=== PATIENT | female | born 1970 | race Native Hawaiian/Other Pacific Islander ===

== ENCOUNTER 2016-06-09 13:25 | Emergency (ER) | payer OTHER ==
[2016-06-09 13:54] VITALS: RESP 18
--- NOTE | 2016-06-09 14:41 | ED ---
ENT HPI - General Chief complaint: Dental/Oral Stated complaint: Oral Pain Time Seen by Provider: 06/09/16 14:33 Source: patient Mode of arrival: ambulatory Limitations: no limitations - History of Present Illness Initial comments: Patient is a 45-year-old female with history of facial cancer presenting with dental pain. Patient states that her teeth spontaneously break. Patient admits to recurrent dental issues for which she is unable to follow up with a dentist. She has an appointment with [facility] for a dentist. Patient hasn't tried anything for the pain. Patient states she was last put on pain pills and penicillin. She denies fever, chills, chest pain, nausea, vomiting, diarrhea. Patient denies trouble swallowing. - Related Data Home Medications Medication Instructions Recorded Confirmed Levothyroxine Sodium [Synthroid] 112 mcg PO DAILY 07/28/15 06/09/16 Previous Rx's Medication Instructions Recorded HYDROcodone/APAP 5-325MG [[place] 5] 1 each PO Q6HR PRN #6 tab 06/09/16 Penicillin V Potassium [Pen Vee K] 500 mg PO QID #40 tab 06/09/16 Allergies Allergy/AdvReac Type Severity Reaction Status Date / Time No Known Allergies Allergy Verified 06/09/16 14:42 Review of Systems ROS Statement: Those systems with pertinent positive or pertinent negative responses have been documented in the HPI. Constitutional: No fever and no chills. HENT: + Dental pain. No congestion, no rhinorrhea and no sore throat. Eyes: No discharge and no redness. Respiratory: No cough and no shortness of breath. Cardiovascular: No chest pain and no palpitations. Gastrointestinal: No nausea, no vomiting, no abdominal pain and no diarrhea. Genitourinary: No dysuria and no hematuria. Musculoskeletal: No back pain and no arthralgias. Skin: No pallor and no rash. Neurological: No dizziness and No headaches. ROS Other: All systems not noted in ROS Statement are negative. 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 Past Anesthesia/Blood Transfusion Reactions: No Reported Reaction Past Psychological History: No Psychological Hx Reported Smoking Status: Former smoker Past Alcohol Use History: None Reported Past Drug Use History: None Reported - Past Family History Father Family Medical History: Cancer Additional Family Medical History / Comment(s): of stomach and lung cancer Mother Family Medical History: Cancer Additional Family Medical History / Comment(s): of pancreatic cancer General Exam - General Exam Comments Initial Comments: Constitutional: Patient doesn't appear in any distress. Patient with chronic face swelling and bandage over nose from history of cancer. Mouth: Poor dentition throughout without any obvious abscess of the upper or lower jaw. Patient with tenderness throughout majority of teeth. Eyes: Conjunctivae and EOM are normal. Right eye exhibits no discharge. Left eye exhibits no discharge. No scleral icterus. Neck: Normal range of motion. Neck supple. Cardiovascular: Normal rate and regular rhythm. No murmur heard. Pulmonary/Chest: Effort normal and breath sounds normal. No respiratory distress. No wheezes. Abdominal: Soft. No distension. There is no tenderness. There is no rebound and no guarding. Musculoskeletal: Normal range of motion. No edema or tenderness. Neurological: Patient alert and oriented to person, place, and time. Skin: Skin is warm and dry. Not diaphoretic. Nursing notes and vitals reviewed. Limitations: no limitations Course Vital Signs 06/09/16 06/09/16 13:51 15:09 Temperature 97.0 F L 97.8 F Pulse Rate 93 80 Respiratory 18 18 Rate Blood Pressure 130/84 162/98 O2 Sat by Pulse 100 98 Oximetry - Reevaluation(s) Reevaluation #1: Given patient's global teeth pain I did not recommend doing a dental block. She is agreeable to this and getting pain pills as well as penicillin VK. Medical Decision Making - Medical Decision Making Patient is a 45-year-old female presenting with recurrent dental pain. She has appointment at [facility] and understands the need to follow-up. Patient was resting in bed. Course of stay stable for outpatient management. Tolerable pain with home pain plan. Discussed physical exam with patient. Questions answered and patient is agreeable to outpatient management with PCP and dentist. Disposition Clinical Impression: Pain, dental Disposition: HOME SELF-CARE Condition: Good Instructions: Toothache (ED) Prescriptions: HYDROcodone/APAP 5-325MG [[place] 5] 1 each PO Q6HR PRN #6 tab PRN Reason: Severe Pain Penicillin V Potassium [Pen Vee K] 500 mg PO QID #40 tab Referrals: Efren Zamudio MD [Primary Care Provider] - 1-2 days
[2016-06-09 15:09] VITALS: BP 162/98; PULSE 80; TEMP 97.8
== END 2016-06-09 15:09 | disposition home or self-care (01) ==
LOC: EC 13:25
DX: K08.89 Other specified disorders of teeth and supporting structures (principal); Z85.72 Personal history of non-Hodgkin lymphomas; E07.9 Disorder of thyroid, unspecified; Z79.899 Other long term (current) drug therapy; Z87.891 Personal history of nicotine dependence
CPT/HCPCS: 99282

== ENCOUNTER 2017-01-27 13:16 | Emergency (ER) | payer OTHER ==
[2017-01-27 13:34] VITALS: BP 139/87; PULSE 95; RESP 18; TEMP 97.7
[2017-01-27] MEDS ORDERED: KETOROLAC 30 MG/ML 1 ML VIAL IM STA (13:36)
[2017-01-27] MEDS ORDERED: HYDROcodone/APAP 5-325MG 1 EACH TAB PO STA (13:36)
--- NOTE | 2017-01-27 13:38 | ED ---
ENT HPI - General Chief complaint: Dental/Oral Stated complaint: Tooth Pain Time Seen by Provider: 01/27/17 13:27 Source: patient Mode of arrival: ambulatory Limitations: no limitations - History of Present Illness Initial comments: 46-year-old female patient presents to emergency department today with complaints of right lower dental pain. Patient states that this area started to bother her yesterday. States she does have a broken tooth in the area. She states that she has bad teeth since receiving 30 rounds of chemo in 2011. She states that she is supposed to have her teeth extracted at [facility] however they have not been able to follow-up to do this. She states that she is unable to sleep due to the pain. She denies any facial swelling, difficulty swallowing, or difficulty opening her mouth. She states she did take an Ultram this morning which did help her pain somewhat. Patient denies any recent fever, chills, shortness breath, chest pain, abdominal pain, nausea, vomiting, diarrhea, constipation, back pain, numbness, tingling, headache, visual changes, hematuria, dysuria, urinary frequency, urinary urgency, or any other complaints. - Related Data Home Medications Medication Instructions Recorded Confirmed Levothyroxine Sodium [Synthroid] 112 mcg PO DAILY 07/28/15 06/09/16 Previous Rx's Medication Instructions Recorded HYDROcodone/APAP 5-325MG [[place] 5] 1 each PO Q6HR PRN #6 tab 06/09/16 Penicillin V Potassium [Pen Vee K] 500 mg PO QID #40 tab 06/09/16 Acetaminophen-Codeine 300-30mg 1 tab PO Q6H PRN #15 tablet 01/27/17 [Tylenol #3] Penicillin V Potassium [Pen Vee K] 500 mg PO QID #40 tab 01/27/17 Allergies Allergy/AdvReac Type Severity Reaction Status Date / Time No Known Allergies Allergy Verified 01/27/17 13:29 Review of Systems ROS Statement: Those systems with pertinent positive or pertinent negative responses have been documented in the HPI. ROS Other: All systems not noted in ROS Statement are negative. 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 Past Anesthesia/Blood Transfusion Reactions: No Reported Reaction Past Psychological History: No Psychological Hx Reported Smoking Status: Current every day smoker Past Alcohol Use History: None Reported Past Drug Use History: None Reported - Past Family History Father Family Medical History: Cancer Additional Family Medical History / Comment(s): of stomach and lung cancer Mother Family Medical History: Cancer Additional Family Medical History / Comment(s): of pancreatic cancer General Exam Limitations: no limitations General appearance: alert, in distress, other (This is a well-developed, well- nourished adult female patient in mild distress related to pain. Vital signs upon presentation her temperature 97.7F, pulse 75, respirations 18, blood pressure 139/87, pulse ox 95% on room air.) Eye exam: Present: normal appearance, PERRL, EOMI. Absent: scleral icterus, conjunctival injection, periorbital swelling ENT exam: Present: normal exam, normal oropharynx, mucous membranes moist, TM's normal bilaterally, other (Patient does have a fractured tooth #32. There is surrounding gingival erythema and swelling with no evidence of drainable abscess.) Neck exam: Present: normal inspection. Absent: tenderness, meningismus, lymphadenopathy Respiratory exam: Present: normal lung sounds bilaterally. Absent: respiratory distress, wheezes, rales, rhonchi, stridor Cardiovascular Exam: Present: regular rate, normal rhythm, normal heart sounds. Absent: systolic murmur, diastolic murmur, rubs, gallop, clicks Neurological exam: Present: alert, oriented X3, CN II-XII intact Psychiatric exam: Present: normal affect, normal mood Skin exam: Present: warm, dry, intact, normal color. Absent: rash Course Vital Signs 01/27/17 13:20 Temperature 97.7 F Pulse Rate 95 Respiratory 18 Rate Blood Pressure 139/87 O2 Sat by Pulse 95 Oximetry Medical Decision Making - Medical Decision Making 46-year-old female patient presented for evaluation of right lower dental pain 2 days. Physical exam did reveal a fractured tooth #32, with gingival erythema and swelling. As patient does have signs of infection we will not do a dental block at this time. She will be given a prescription for penicillin as well as pain medication. She is instructed to follow-up with her dentist [facility] for further evaluation. She is instructed to follow-up with her primary care physician for recheck in 1-2 days. She is instructed to return here immediately for any new, worsening, or concerning symptoms. She verbalizes understanding and agrees with this plan. Disposition Clinical Impression: Pain, dental Disposition: HOME SELF-CARE Condition: Good Instructions: Dental Abscess (ED), Toothache (ED) Additional Instructions: Take medications as directed. Follow up with a dentist as soon as possible. Return here immediately for any new, worsening, or concerning symptoms. Prescriptions: Acetaminophen-Codeine 300-30mg [Tylenol #3] 1 tab PO Q6H PRN #15 tablet PRN Reason: Pain Penicillin V Potassium [Pen Vee K] 500 mg PO QID #40 tab Referrals: Nonstaff,Physician [Primary Care Provider] - 1-2 days Time of Disposition: 13:38
== END 2017-01-27 13:52 | disposition home or self-care (01) ==
LOC: EC 13:16
DX: S02.5XXA Fracture of tooth (traumatic), initial encounter for closed fracture (principal); E07.9 Disorder of thyroid, unspecified; F17.200 Nicotine dependence, unspecified, uncomplicated; Z79.899 Other long term (current) drug therapy; X58.XXXA Exposure to other specified factors, initial encounter
CPT/HCPCS: 99282 ×2; 96372 ×2; J1885